=== PATIENT | female | born 1980 ===

== ENCOUNTER 2016-08-26 01:00 | Emergency (ER) | payer SELFPAY ==
[2016-08-26 01:22] VITALS: O2SAT 100
--- NOTE | 2016-08-26 02:44 | ED PDOC ---
HPI: Chest Pain Time Seen by Provider: 08/26/16 01:19 Chief Complaint (Nursing): Chest Pain Chief Complaint (Provider): Chest Pain History Per: Patient Onset/Duration Of Symptoms: Hrs (x2) Current Symptoms Are (Timing): Still Present Context: Other (Argument) Associated Symptoms: Dyspnea Additional Complaint(s): 35 year old female presents to ED with complaints of left sided chest pain x2 hours and has a past medical history of anemia. States that the chest pain started after she was in an argument. (+) SOB but notes that her symptoms have been resolving upon arrival to ED. PCP: Ryne - Risk Factors TAD Risk Factors: Neg: Hypertension Past Medical History Reviewed: Historical Data, Nursing Documentation, Vital Signs Vital Signs: Last Vital Signs Temp 98.6 F 08/26/16 01:14 Pulse 109 H 08/26/16 01:14 Resp 17 08/26/16 01:14 BP 124/67 08/26/16 01:14 Pulse Ox 100 08/26/16 02:48 - Medical History PMH: Anemia Denies: No Chronic Diseases, HIV - Surgical History Surgical History: (x1) Denies: No Surg Hx - Family History Family History: States: No Known Family Hx Denies: [place], CAD - Living Arrangements Living Arrangements: With Family - Home Medications Home Medications: Ambulatory Orders Medication Instructions Recorded Cetirizine HCl [Zyrtec] 10 mg PO DAILY #10 capsule 08/14/15 Hydrocortisone 2.5% (Rectal) 30 applic MS BID #1 tube 08/14/15 [Anusol-HC] Ibuprofen [Motrin Tab] 400 mg PO Q6 PRN #0 tab 12/27/15 Levofloxacin [Levaquin] 750 mg PO DAILY #0 tablet 12/27/15 Loratadine [Claritin] 10 mg PO DAILY #0 tab 12/27/15 Promethazine/Codeine 5 ml PO Q6 PRN #1 bottle 12/27/15 [Phenergan/Codeine Oral Syrup] Methylprednisolone [Medrol Dose 4 mg PO DAILY #21 mg 01/02/16 Pack (21 tabs)] Promethazine HCl/Codeine 5 ml PO HS #80 ml 01/02/16 [Prometh-Codein 6.25-10 mg/5 ml] Amoxicillin 875 mg PO BID #20 tablet 11/26/16 Ibuprofen [Motrin] 400 mg PO Q6 PRN #20 tab 01/19/16 Dicyclomine [Bentyl] 20 mg PO Q6H PRN #20 tab 02/07/16 Famotidine [Pepcid] 20 mg PO BID #28 tab 02/07/16 Ondansetron ODT [Zofran ODT] 4 mg PO QID #20 odt 02/07/16 Cyclobenzaprine [Cyclobenzaprine 10 mg PO BID #15 tab 08/26/16 HCl] Ibuprofen [Motrin Tab] 600 mg PO Q6 #30 tab 08/26/16 - Allergies Allergies/Adverse Reactions: Allergies Allergy/AdvReac Type Severity Reaction Status Date / Time No Known Allergies Allergy Verified 02/07/16 16:42 ANDRE Risk Score for UA/NSTEMI - ANDRE Risk Score Age > 64: NO Known CAD (Stenosis greater than 50%): NO ANDRE Score: 0 Risk %: 5% Curb-65 Severity Score - CURB-65 Severity Score Confusion: No Respiratory Rate greater than/equal to 30: No Systolic BP <90 or Diastolic BP less than/equal 60mmHg: No Age >64: No Curb-65 Score: 0 Percentage 30-day mortality: 0.6% Wells Criteria for PE - Wells Criteria for Pulmonary Embolism Clinical Signs and Symptoms of DVT: No P.E is #1 Diagnosis, or Equally Likely: No Heart Rate >100: Yes Immobilization at least 3 days;Surgery previous 4 weeks: No Previous, objectively diagnosed PE or DVT: No Hemoptysis: No Malignancy w/treatment within 6 months, or palliative: No Total Score: 1.5 Review of Systems ROS Statement: Except As Marked, All Systems Reviewed And Found Negative Cardiovascular: Positive for: Chest Pain Respiratory: Positive for: Shortness of Breath Physical Exam - Reviewed Nursing Documentation Reviewed: Yes Vital Signs Reviewed: Yes - Physical Exam Appears: Positive for: Non-toxic, No Acute Distress Skin: Positive for: Normal Color, Warm, Dry Eye Exam: Positive for: Normal appearance Neck: Positive for: Normal, Painless ROM, Supple Cardiovascular/Chest: Positive for: Regular Rate, Rhythm. Negative for: Murmur Respiratory: Positive for: Normal Breath Sounds. Negative for: Respiratory Distress Gastrointestinal/Abdominal: Positive for: Normal Exam, Soft. Negative for: Tenderness Extremity: Positive for: Normal ROM. Negative for: Capillary Refill, Deformity Neurologic/Psych: Positive for: Alert, Oriented, Mood/Affect (anxious affect). Negative for: Motor/Sensory Deficits - ECG ECG Rhythm: Positive for: Sinus Rhythm O2 Sat by Pulse Oximetry: 100 (RA) Pulse Ox Interpretation: Normal Medical Decision Making Medical Decision Makin Initial impression: noncardiac related chest pain - stress related Initial plan: * CXR * Ibuprofen 600mg PO * Re-eval 245AM: Pt. feeling better, will d/c home. Return precautions given. Scribe Attestation: Documented by Jaylene Aguilera acting as a scribe for Kayden Renteria MD. Scribe Attestation: All medical record entries made by the Scribe were at my direction and personally dictated by me. I have reviewed the chart and agree that the record accurately reflects my personal performance of the history, physical exam, medical decision making, and the department course for this patient. I have also personally directed, reviewed, and agree with the discharge instructions and disposition. Disposition - Clinical Impression Clinical Impression: Atypical chest pain - Disposition Referrals: [facility] [Outside] Disposition: Routine/Home Disposition Time: 03:10 Condition: STABLE Prescriptions: Cyclobenzaprine [Cyclobenzaprine HCl] 10 mg PO BID #15 tab Ibuprofen [Motrin Tab] 600 mg PO Q6 #30 tab Instructions: Chest Pain (ED) Print Language: NEPALESE
[2016-08-26 03:20] VITALS: BP 115/89; PULSE 107; RESP 20; TEMP 98.4
--- NOTE | 2016-08-26 09:30 | RAD ---
HISTORY: CP and SOB COMPARISON: 01/02/2016 TECHNIQUE: Chest PA and lateral FINDINGS: LUNGS: No focal airspace opacity. PLEURA: No significant pleural effusion identified. No pneumothorax apparent. CARDIOVASCULAR: Normal. OSSEOUS STRUCTURES: No significant abnormalities. VISUALIZED UPPER ABDOMEN: Normal. OTHER FINDINGS: None. IMPRESSION: No focal airspace opacity. No significant interval change. Please note that chest radiographs have low sensitivity for small pulmonary nodules. If indicated, chest CT should be obtained.
--- NOTE | 2016-08-28 07:06 | CARD ---
APPROVED REPORT EKG Measurement Heart [id number] <Conclusion> Sinus tachycardia Otherwise normal ECG
== END 2016-08-26 03:40 | disposition home or self-care (01) ==
LOC: H.ER 01:00
DX: R07.89 Other chest pain (principal)

== ENCOUNTER 2016-09-20 00:58 | Emergency (ER) | payer OTHER ==
[2016-09-20] MEDS ORDERED: Sodium Chloride 0.9% 1,000 ML IV STA ×2 (01:08→02:03)
[2016-09-20 01:50] LABS: HEMATOCRIT 34.1 % (34.0-47.0); MEAN CELL VOLUME 79.8 fl (81.0-99.0); MEAN CORPUSCULAR HEMOGLOBIN 27.3 pg (27.0-31.0); MEAN CORPUSCULAR HGB CONC 34.2 g/dL (33.0-37.0); RED CELL DISTRIBUTION WIDTH 14.2 % (11.5-14.5); WHITE BLOOD COUNT 9.3 K/uL (4.8-10.8)
[2016-09-20] MEDS ORDERED: Morphine 4 MG/ML VIAL IV STA (01:51)
[2016-09-20 02:00] LABS: CHLORIDE 108 mmol/L (98-107); SODIUM 139 mmol/l (132-148)
[2016-09-20 02:02] LABS: BILIRUBIN,TOTAL 0.6 mg/dl (0.2-1.3); GFR AFRICAN-AMERICAN > 60
[2016-09-20 02:03] LABS: ALB/GLOB RATIO 1.2 (1.0-2.1); ALKALINE PHOSPHATASE 211 U/L (38-126); ALT/SGPT 32 U/L (9-52); AST/SGOT 32 U/L (14-36); BLOOD UREA NITROGEN 16 mg/dl (7-17); CALCIUM 9.4 mg/dL (8.4-10.2); CARBON DIOXIDE 24 mmol/L (22-30); GLUCOSE,RANDOM 105 mg/dL (65-105); TOTAL PROTEIN 6.5 G/DL (6.3-8.2)
[2016-09-20] MEDS ORDERED: Iodixanol 320 MG/ML 100 ML BOTTLE IV ONE (03:15)
[2016-09-20] MEDS ORDERED: Sodium Chloride 0.9% 50 ML IV ONE (03:15)
[2016-09-20 03:45] VITALS: TEMP 98.1
--- NOTE | 2016-09-20 04:07 | ED PDOC ---
HPI: Chest Pain Time Seen by Provider: 09/20/16 01:00 Chief Complaint (Nursing): Chest Pain Chief Complaint (Provider): Left sided chest pain x 1 week History Per: Patient History/Exam Limitations: no limitations Onset/Duration Of Symptoms: Hrs Current Symptoms Are (Timing): Still Present Severity: Severe Pain Scale Rating Of: 10 Quality: Sharp Associated Symptoms: denies: Nausea, Dyspnea, Diaphoresis, Syncope Additional Complaint(s): Pt states this is the same pain she has had the same pain in the past. Pt states today the pain is more severe. PT states she has not seen a [facility]. Past Medical History Reviewed: Historical Data, Nursing Documentation, Vital Signs Vital Signs: Last Vital Signs Temp 98.1 F 09/20/16 03:44 Pulse 88 09/20/16 03:44 Resp 18 09/20/16 03:44 BP 110/61 09/20/16 03:44 Pulse Ox 100 09/20/16 04:17 - Medical History PMH: Anemia Denies: HIV - Surgical History Surgical History: (x1) - Family History Family History: States: Unknown Family Hx Denies: [place], CAD - Living Arrangements Living Arrangements: With Family - Social History Current smoker - smoking cessation education provided: No Alcohol: None Drugs: Denies - Home Medications Home Medications: Ambulatory Orders Medication Instructions Recorded Cetirizine HCl [Zyrtec] 10 mg PO DAILY #10 capsule 08/14/15 Hydrocortisone 2.5% (Rectal) 30 applic [place] BID #1 tube 08/14/15 [Anusol-HC] Ibuprofen [Motrin Tab] 400 mg PO Q6 PRN #0 tab 12/27/15 Levofloxacin [Levaquin] 750 mg PO DAILY #0 tablet 12/27/15 Loratadine [Claritin] 10 mg PO DAILY #0 tab 12/27/15 Promethazine/Codeine 5 ml PO Q6 PRN #1 bottle 12/27/15 [Phenergan/Codeine Oral Syrup] Methylprednisolone [Medrol Dose 4 mg PO DAILY #21 mg 01/02/16 Pack (21 tabs)] Promethazine HCl/Codeine 5 ml PO HS #80 ml 01/02/16 [Prometh-Codein 6.25-10 mg/5 ml] Amoxicillin 875 mg PO BID #20 tablet 01/19/16 Ibuprofen [Motrin] 400 mg PO Q6 PRN #20 tab 01/19/16 Dicyclomine [Bentyl] 20 mg PO Q6H PRN #20 tab 02/07/16 Famotidine [Pepcid] 20 mg PO BID #28 tab 02/07/16 Ondansetron ODT [Zofran ODT] 4 mg PO QID #20 odt 02/07/16 Cyclobenzaprine [Cyclobenzaprine 10 mg PO BID #15 tab 08/26/16 HCl] Ibuprofen [Motrin Tab] 600 mg PO Q6 #30 tab 08/26/16 - Allergies Allergies/Adverse Reactions: Allergies Allergy/AdvReac Type Severity Reaction Status Date / Time No Known Allergies Allergy Verified 09/20/16 01:01 Review of Systems ROS Statement: Except As Marked, All Systems Reviewed And Found Negative Cardiovascular: Positive for: Chest Pain Respiratory: Negative for: Cough, Shortness of Breath Physical Exam - Reviewed Nursing Documentation Reviewed: Yes Vital Signs Reviewed: Yes - Physical Exam Appears: Positive for: Well, Non-toxic, No Acute Distress Head Exam: Positive for: ATRAUMATIC, NORMAL INSPECTION, NORMOCEPHALIC Skin: Positive for: Normal Color, Warm, DRY Eye Exam: Positive for: Normal appearance ENT: Positive for: Normal ENT Inspection Neck: Positive for: Normal, Painless ROM Cardiovascular/Chest: Positive for: Regular Rate, Rhythm Respiratory: Positive for: Normal Breath Sounds. Negative for: Accessory Muscle Use, Respiratory Distress Back: Positive for: Normal Inspection Extremity: Positive for: Normal ROM. Negative for: Tenderness Neurologic/Psych: Positive for: Alert, Oriented - Laboratory Results Result Diagrams: 09/20/16 01:46 09/20/16 01:46 - ECG O2 Sat by Pulse Oximetry: 100 Disposition - Clinical Impression Clinical Impression: Chest pain - Patient ED Disposition Is Patient to be Admitted: Transfer of Care - Disposition Disposition: Transfer of Care Disposition Time: 05:59 Condition: STABLE
--- NOTE | 2016-09-20 06:00 | ED PDOC ---
- Laboratory Results Result Diagrams: 09/20/16 01:46 09/20/16 01:46 - ECG O2 Sat by Pulse Oximetry: 100 (RA) Pulse Ox Interpretation: Normal Medical Decision Making Medical Decision Making: Time: 0600 Initial plan: Patient signed out to me by Racquel Evans PA-C. Pending Angio Chest Cat Scan. 0632: Re-Assess- EXAM: CT Angiography Chest With Intravenous Contrast CLINICAL HISTORY: 35 years old, female; Pain; Chest pain; Radiating; Additional info: Pleuritic left sided chest pain,tachycardia TECHNIQUE: Axial computed tomographic angiography images of the chest with intravenous contrast using pulmonary embolism protocol. This CT exam was performed using one or more of the following dose reduction techniques: automated exposure control, adjustment of the mA and/or kV according to patient size, and/or use of iterative reconstruction technique. MIP reconstructed images were created and reviewed. Coronal and sagittal reformatted images were created and reviewed. CONTRAST: 99 mL of [id number] administered intravenously. EXAM DATE/TIME: 09/20/2016 1:50 AM COMPARISON: No relevant prior studies available. FINDINGS: LIMITATIONS: Mild to moderate respiratory motion artifact. PULMONARY ARTERIES: Exam is somewhat limited for the detection of pulmonary emboli secondary to respiratory motion. Allowing for this, no definite pulmonary emboli are seen. AORTA: No evidence of aortic dissection. LUNGS: Incidental 6 mm noncalcified pulmonary nodule in the right lung, image 236/series 9. For low-risk patients recommend follow-up CT at 6-12 months. If unchanged consider an additional follow-up CT at 18-24 months. For high-risk patients (smoking history or other known risk factors) initial follow-up CT at 6-12 months and if unchanged, 18-24 months. No evidence of significant focal consolidation/infiltrate in the lungs. No evidence of diffuse pulmonary vascular congestion. PLEURAL SPACE: No pneumothorax or pleural effusions seen. HEART: No evidence of significant pericardial effusion. MEDIASTINUM: Soft tissue density is seen in the anterior mediastinum, most likely representing residual thymus, given its appearance. THYROID: Thyroid gland is mildly, diffusely enlarged. No focal nodules are seen. BONES/JOINTS: No acute bony abnormality identified. SOFT TISSUES: No acute abnormality of the visualized soft tissues seen. LYMPH NODES: No evidence of diffuse lymphadenopathy. STOMACH AND BOWEL: Subtle stranding of the peripancreatic fat is seen. Multiple fluid-filled and mildly dilated small bowel loops seen in the left upper abdomen, which could represent a mild ileus. No evidence of significant gastric or duodenal dilatation. IMPRESSION: - No evidence of pulmonary embolism or other significant acute abnormality in the chest. - Subtle stranding of the fat adjacent to the pancreas. This finding could be due to mild/early acute pancreatitis. Recommend clinical correlation. - Incidental 6 mm pumonary nodule. See recommendations above. - See above for remaining findings. 0700: Giving Sign out: Patient signed out to Dr. Kennedy at this time. Pending results of Lipase. Scribe Attestation: Documented by Reina Rose, acting as a scribe for Kayden Renteria MD. Scribe Attestation: All medical record entries made by the Scribe were at my direction and personally dictated by me. I have reviewed the chart and agree that the record accurately reflects my personal performance of the history, physical exam, medical decision making, and the department course for this patient. I have also personally directed, reviewed, and agree with the discharge instructions and disposition. Disposition - Clinical Impression Clinical Impression: Chest pain - POA Present On Arrival: None - Disposition Disposition: Transfer of Care Disposition Time: 07:00 Condition: STABLE Patient Signed Over To: Tucker Kennedy Handoff Comments: pending lipase
[2016-09-20 06:27] VITALS: BP 125/65; PULSE 79
--- NOTE | 2016-09-20 06:33 | CT ---
EXAM: CT Angiography Chest With Intravenous Contrast CLINICAL HISTORY: 35 years old, female; Pain; Chest pain; Radiating; Additional info: Pleuritic left sided chest pain, tachycardia TECHNIQUE: Axial computed tomographic angiography images of the chest with intravenous contrast using pulmonary embolism protocol. This CT exam was performed using one or more of the following dose reduction techniques: automated exposure control, adjustment of the mA and/or kV according to patient size, and/or use of iterative reconstruction technique. MIP reconstructed images were created and reviewed. Coronal and sagittal reformatted images were created and reviewed. CONTRAST: 99 mL of [id number] administered intravenously. EXAM DATE/TIME: 09/20/2016 1:50 AM COMPARISON: No relevant prior studies available. FINDINGS: LIMITATIONS: Mild to moderate respiratory motion artifact. PULMONARY ARTERIES: Exam is somewhat limited for the detection of pulmonary emboli secondary to respiratory motion. Allowing for this, no definite pulmonary emboli are seen. AORTA: No evidence of aortic dissection. LUNGS: Incidental 6 mm noncalcified pulmonary nodule in the right lung, image 236/series 9. For low-risk patients recommend follow-up CT at 6-12 months. If unchanged consider an additional follow-up CT at 18-24 months. For high-risk patients (smoking history or other known risk factors) initial follow-up CT at 6-12 months and if unchanged, 18-24 months. No evidence of significant focal consolidation/infiltrate in the lungs. No evidence of diffuse pulmonary vascular congestion. PLEURAL SPACE: No pneumothorax or pleural effusions seen. HEART: No evidence of significant pericardial effusion. MEDIASTINUM: Soft tissue density is seen in the anterior mediastinum, most likely representing residual thymus, given its appearance. THYROID: Thyroid gland is mildly, diffusely enlarged. No focal nodules are seen. BONES/JOINTS: No acute bony abnormality identified. SOFT TISSUES: No acute abnormality of the visualized soft tissues seen. LYMPH NODES: No evidence of diffuse lymphadenopathy. STOMACH AND BOWEL: Subtle stranding of the peripancreatic fat is seen. Multiple fluid-filled and mildly dilated small bowel loops seen in the left upper abdomen, which could represent a mild ileus. No evidence of significant gastric or duodenal dilatation. IMPRESSION: - No evidence of pulmonary embolism or other significant acute abnormality in the chest. - Subtle stranding of the fat adjacent to the pancreas. This finding could be due to mild/early acute pancreatitis. Recommend clinical correlation. - Incidental 6 mm pumonary nodule. See recommendations above. - See above for remaining findings.
--- NOTE | 2016-09-20 07:12 | ED PDOC ---
- Laboratory Results Result Diagrams: 09/20/16 01:46 09/20/16 01:46 - ECG O2 Sat by Pulse Oximetry: 100 (RA) Disposition - Clinical Impression Clinical Impression: Chest pain - POA Present On Arrival: None - Disposition Referrals: [facility] [Outside] Disposition: Routine/Home Disposition Time: 07:11 Condition: STABLE Instructions: Chest Pain (ED) Forms: [employer] (Filipino)
[2016-09-20 07:37] VITALS: RESP 16; O2SAT 99
--- NOTE | 2016-09-21 13:25 | CARD ---
APPROVED REPORT EKG Measurement Heart [id number] <Conclusion> Sinus tachycardia Otherwise normal ECG
== END 2016-09-20 07:37 | disposition home or self-care (01) ==
LOC: H.ER 00:58
DX: R07.89 Other chest pain (principal)
CPT/HCPCS: 71275; 80053; 81025; 83690; 84484; 85027; 93005; 96361; 96374; 99285; J7040; Q9967

== ENCOUNTER 2016-11-12 22:24 | Emergency (ER) | payer SELFPAY ==
[2016-11-12 22:32] VITALS: BP 154/81; PULSE 119; RESP 16; TEMP 99.6; O2SAT 100
--- NOTE | 2016-11-12 22:47 | ED PDOC ---
HPI: Chest Pain Time Seen by Provider: 11/12/16 22:37 Chief Complaint (Nursing): Chest Pain History Per: Patient (Sharp left sided chest pain, pain under right breast. Intermittent over past few months. Denies SOB or cough.) Past Medical History Vital Signs: Last Vital Signs Temp 99.6 F 11/12/16 22:30 Pulse 119 H 11/12/16 22:30 Resp 16 11/12/16 22:30 BP 154/81 H 11/12/16 22:30 Pulse Ox 100 11/12/16 23:44 - Medical History PMH: Anemia Denies: HIV - Surgical History Surgical History: (x1) - Family History Family History: States: Unknown Family Hx Denies: [place], CAD - Home Medications Home Medications: Ambulatory Orders Medication Instructions Recorded Cetirizine HCl [Zyrtec] 10 mg PO DAILY #10 capsule 08/14/15 Hydrocortisone 2.5% (Rectal) 30 applic MS BID #1 tube 08/14/15 [Anusol-HC] Ibuprofen [Motrin Tab] 400 mg PO Q6 PRN #0 tab 12/27/15 Levofloxacin [Levaquin] 750 mg PO DAILY #0 tablet 12/27/15 Loratadine [Claritin] 10 mg PO DAILY #0 tab 12/27/15 Promethazine/Codeine 5 ml PO Q6 PRN #1 bottle 12/27/15 [Phenergan/Codeine Oral Syrup] Methylprednisolone [Medrol Dose 4 mg PO DAILY #21 mg 01/02/16 Pack (21 tabs)] Promethazine HCl/Codeine 5 ml PO HS #80 ml 01/02/16 [Prometh-Codein 6.25-10 mg/5 ml] Amoxicillin 875 mg PO BID #20 tablet 01/19/16 Ibuprofen [Motrin] 400 mg PO Q6 PRN #20 tab 01/19/16 Dicyclomine [Bentyl] 20 mg PO Q6H PRN #20 tab 02/07/16 Famotidine [Pepcid] 20 mg PO BID #28 tab 02/07/16 Ondansetron ODT [Zofran ODT] 4 mg PO QID #20 odt 02/07/16 Cyclobenzaprine [Cyclobenzaprine 10 mg PO BID #15 tab 08/26/16 HCl] Ibuprofen [Motrin Tab] 600 mg PO Q6 #30 tab 08/26/16 Non-Formulary 1 ea .ROUTE Q6 #1 ea 11/12/16 - Allergies Allergies/Adverse Reactions: Allergies Allergy/AdvReac Type Severity Reaction Status Date / Time No Known Allergies Allergy Verified 11/12/16 22:30 Review of Systems ROS Statement: Except As Marked, All Systems Reviewed And Found Negative Cardiovascular: Positive for: Chest Pain Physical Exam - Reviewed Nursing Documentation Reviewed: Yes Vital Signs Reviewed: Yes - Physical Exam Appears: Positive for: Non-toxic, No Acute Distress Head Exam: Positive for: ATRAUMATIC, NORMAL INSPECTION, NORMOCEPHALIC Skin: Positive for: Normal Color, Warm, DRY Eye Exam: Positive for: EOMI, Normal appearance, PERRL ENT: Positive for: Normal ENT Inspection Neck: Positive for: Normal, Painless ROM Cardiovascular/Chest: Positive for: Regular Rate, Rhythm. Negative for: Chest Non Tender (left sided chest wall tenderness) Respiratory: Positive for: CNT, Normal Breath Sounds Gastrointestinal/Abdominal: Positive for: Normal Exam, Bowel Sounds, Soft Back: Positive for: Normal Inspection Extremity: Positive for: Normal ROM. Negative for: Calf Tenderness, Swelling Neurologic/Psych: Positive for: Alert, Oriented - Laboratory Results Result Diagrams: 11/12/16 23:03 11/12/16 23:03 - ECG O2 Sat by Pulse Oximetry: 100 Disposition - Clinical Impression Clinical Impression: Chest wall pain - Patient ED Disposition Is Patient to be Admitted: No Counseled Patient/Family Regarding: Studies Performed, Diagnosis, Need For Followup, Rx Given - Disposition Referrals: [facility] [Outside] Disposition: Routine/Home Disposition Time: 23:42 Condition: FAIR Prescriptions: Non-Formulary 1 ea .ROUTE Q6 #1 ea Instructions: Chest Wall Pain (ED) Forms: [employer] (Haitian) Print Language: URDU
[2016-11-12 23:07] LABS: BASO # 0.1 K/uL (0.0-0.2); BASO % 0.6 % (0.0-2.0); EOS # 0.1 K/uL (0.0-0.7); EOS % 1.6 % (0.0-4.0); HEMATOCRIT 33.4 % (34.0-47.0); LYMPH # 3.7 K/uL (1.0-4.3); LYMPH % 40.3 % (20.0-40.0); MEAN CELL VOLUME 79.3 fl (81.0-99.0); MEAN CORPUSCULAR HEMOGLOBIN 26.4 pg (27.0-31.0); MEAN CORPUSCULAR HGB CONC 33.3 g/dL (33.0-37.0); MEAN PLATELET VOLUME 8.5 fl (7.2-11.7); MONO # 1.2 K/uL (0.0-0.8); MONO % 13.3 % (0.0-10.0); NEUT % 44.2 % (50.0-75.0); NRBC % 0.1 % (0.0-0.0); RED CELL DISTRIBUTION WIDTH 14.1 % (11.5-14.5); WHITE BLOOD COUNT 9.2 K/uL (4.8-10.8)
[2016-11-12 23:26] LABS: ALB/GLOB RATIO 1.3 (1.0-2.1); ALKALINE PHOSPHATASE 169 U/L (38-126); ALT/SGPT 26 U/L (9-52); AST/SGOT 52 U/L (14-36); BILIRUBIN,TOTAL 0.8 mg/dl (0.2-1.3); BLOOD UREA NITROGEN 14 mg/dl (7-17); CALCIUM 9.3 mg/dL (8.4-10.2); CARBON DIOXIDE 21 mmol/L (22-30); CHLORIDE 106 mmol/L (98-107); GFR AFRICAN-AMERICAN > 60; GLUCOSE,RANDOM 108 mg/dL (65-105); POTASSIUM 3.7 MMOL/L (3.6-5.0); SODIUM 137 mmol/l (132-148); TOTAL PROTEIN 6.5 G/DL (6.3-8.2)
--- NOTE | 2016-11-13 10:47 | CARD ---
APPROVED REPORT EKG Measurement Heart [id number] <Conclusion> Sinus tachycardia Otherwise normal ECG
== END 2016-11-13 00:04 | disposition home or self-care (01) ==
LOC: H.ER 22:24
DX: R07.89 Other chest pain (principal)

== ENCOUNTER 2016-11-15 18:25 | Emergency (ER) | payer SELFPAY ==
[2016-11-15] MEDS ORDERED: Sodium Chloride 0.9% 1,000 ML IV STA (19:08)
--- NOTE | 2016-11-15 19:18 | ED PDOC ---
HPI: Female Pain Time Seen by Provider: 11/15/16 19:01 Chief Complaint (Nursing): Abdominal Pain Chief Complaint (Provider): - 8 weeks? with suprapubic pain, nausea History Per: Patient History/Exam Limitations: no limitations Onset/Duration Of Symptoms: Days Current Symptoms Are (Timing): Still Present Severity: Moderate Quality Of Discomfort: Dull, Cramping Associated Symptoms: Nausea, Vomiting, Loss Of Appetite. denies: Fever, Chills , Diarrhea Alleviating Factors: None Additional Complaint(s): Pt and states she saw OB but there was no heart beat. Pt reports nausea today. Pt also reports cramping pain, no vaginal bleeding. Past Medical History Reviewed: Historical Data, Nursing Documentation, Vital Signs Vital Signs: Last Vital Signs Temp 98.6 F 11/15/16 18:27 Pulse 89 11/15/16 18:27 Resp 16 11/15/16 18:27 BP 143/77 11/15/16 18:27 Pulse Ox 99 11/15/16 18:27 - Medical History PMH: Anemia Denies: HIV - Surgical History Surgical History: (x1) - Family History Family History: States: Unknown Family Hx Denies: SD, CAD - Living Arrangements Living Arrangements: With Family - Social History Current smoker - smoking cessation education provided: No Alcohol: None Drugs: Denies - Home Medications Home Medications: Ambulatory Orders Medication Instructions Recorded Cetirizine HCl [Zyrtec] 10 mg PO DAILY #10 capsule 08/14/15 Hydrocortisone 2.5% (Rectal) 30 applic AL BID #1 tube 08/14/15 [Anusol-HC] Ibuprofen [Motrin Tab] 400 mg PO Q6 PRN #0 tab 12/27/15 Levofloxacin [Levaquin] 750 mg PO DAILY #0 tablet 12/27/15 Loratadine [Claritin] 10 mg PO DAILY #0 tab 12/27/15 Promethazine/Codeine 5 ml PO Q6 PRN #1 bottle 12/27/15 [Phenergan/Codeine Oral Syrup] Methylprednisolone [Medrol Dose 4 mg PO DAILY #21 mg 01/02/16 Pack (21 tabs)] Promethazine HCl/Codeine 5 ml PO HS #80 ml 01/02/16 [Prometh-Codein 6.25-10 mg/5 ml] Amoxicillin 875 mg PO BID #20 tablet 01/19/16 Ibuprofen [Motrin] 400 mg PO Q6 PRN #20 tab 01/19/16 Dicyclomine [Bentyl] 20 mg PO Q6H PRN #20 tab 02/07/16 Famotidine [Pepcid] 20 mg PO BID #28 tab 02/07/16 Ondansetron ODT [Zofran ODT] 4 mg PO QID #20 odt 02/07/16 Cyclobenzaprine [Cyclobenzaprine 10 mg PO BID #15 tab 08/26/16 HCl] Ibuprofen [Motrin Tab] 600 mg PO Q6 #30 tab 08/26/16 Non-Formulary 1 ea .ROUTE Q6 #1 ea 11/12/16 - Allergies Allergies/Adverse Reactions: Allergies Allergy/AdvReac Type Severity Reaction Status Date / Time No Known Allergies Allergy Verified 11/12/16 22:30 Review of Systems ROS Statement: Except As Marked, All Systems Reviewed And Found Negative Constitutional: Negative for: Fever, Chills Respiratory: Negative for: Cough Gastrointestinal: Positive for: Nausea, Vomiting, Abdominal Pain Physical Exam - Reviewed Nursing Documentation Reviewed: Yes Vital Signs Reviewed: Yes - Physical Exam Appears: Positive for: Well, Non-toxic, No Acute Distress Head Exam: Positive for: ATRAUMATIC, NORMAL INSPECTION, NORMOCEPHALIC Skin: Positive for: Normal Color, Warm, DRY Eye Exam: Positive for: Normal appearance ENT: Positive for: Normal ENT Inspection Neck: Positive for: Normal, Painless ROM Cardiovascular/Chest: Positive for: Regular Rate, Rhythm Respiratory: Positive for: Normal Breath Sounds. Negative for: Accessory Muscle Use, Respiratory Distress Gastrointestinal/Abdominal: Positive for: Bowel Sounds, Soft, Tenderness ( Suprapubic ). Negative for: Normal Exam Back: Positive for: Normal Inspection Extremity: Positive for: Normal ROM Neurologic/Psych: Positive for: Alert, Oriented - ECG O2 Sat by Pulse Oximetry: 99 Pulse Ox Interpretation: Normal Medical Decision Making Medical Decision Making: Endorsed pending labs and US. Disposition - Clinical Impression Clinical Impression: Abdominal pain during - Patient ED Disposition Is Patient to be Admitted: Transfer of Care - Disposition Disposition: Transfer of Care Disposition Time: 19:20 Condition: GOOD
--- NOTE | 2016-11-15 20:37 | US ---
EXAM: US , Transvaginal EXAM DATE/TIME: 11/15/2016 8:14 PM CLINICAL HISTORY: 36 years old, female; Pain; complicated by abdominal or pelvic pain; Periumbilical; First trimester; Gestational age or lmp: Lmp [id number]; ; Prior surgery; Surgery date: 6+ months; Surgery type: ; Additional info: Suprapubic pain, TECHNIQUE: Real-time transvaginal obstetrical ultrasound of the maternal pelvis and a first trimester with image documentation. Transvaginal imaging was used for better evaluation of the fetus and adnexa. COMPARISON: There are no prior studies for comparison. FINDINGS: Gestation: There is a single intrauterine gestation. Gestational sac has mean diameter 21.3 mm. [place]casin rump length measures 10 mm. A yolk sac is present, internal diameter measures 3 mm. There is a heart rate of 169 beats per minute. Uterus: Uterus measures approximately 10 x 6.5 x 7.4 cm.. Cervix measures 8.3 cm in line There is a 3.5 x 4.3 x 4.1 cm left fundal intramural fibroid. Ovaries: Right ovary measures 1.81 x 1.64 x 1.47 cm.There are multiple small follicles. There is intraovarian blood flow. Left ovary measures 2.97 x 2.51 x 2.37 cm. There is a 2.3 x 1.8 x 1.6 cm cyst.There is expected blood flow on Doppler imaging Free fluid: There is no free fluid. IMPRESSION: 7 week 0 day single living intrauterine gestation, estimated date of delivery of 07/04/17; fundal fibroid
[2016-11-15 20:49] LABS: BASO # 0.1 K/uL (0.0-0.2); BASO % 0.5 % (0.0-2.0); EOS # 0.1 K/uL (0.0-0.7); EOS % 1.4 % (0.0-4.0); HEMATOCRIT 36.1 % (34.0-47.0); LYMPH # 4.2 K/uL (1.0-4.3); LYMPH % 38.4 % (20.0-40.0); MEAN CELL VOLUME 78.8 fl (81.0-99.0); MEAN CORPUSCULAR HEMOGLOBIN 26.7 pg (27.0-31.0); MEAN CORPUSCULAR HGB CONC 33.8 g/dL (33.0-37.0); MEAN PLATELET VOLUME 8.7 fl (7.2-11.7); MONO # 1.2 K/uL (0.0-0.8); MONO % 10.8 % (0.0-10.0); NEUT # 5.3 K/uL (1.8-7.0); NEUT % 48.9 % (50.0-75.0); NRBC % 0.5 % (0.0-0.0); RED CELL DISTRIBUTION WIDTH 13.9 % (11.5-14.5); WHITE BLOOD COUNT 10.8 K/uL (4.8-10.8)
[2016-11-15 20:58] LABS: ALB/GLOB RATIO 1.3 (1.0-2.1); ALKALINE PHOSPHATASE 197 U/L (38-126); ALT/SGPT 32 U/L (9-52); AST/SGOT 29 U/L (14-36); BILIRUBIN,TOTAL 0.9 mg/dl (0.2-1.3); BLOOD UREA NITROGEN 13 mg/dl (7-17); CALCIUM 9.6 mg/dL (8.4-10.2); CARBON DIOXIDE 22 mmol/L (22-30); CHLORIDE 105 mmol/L (98-107); GFR AFRICAN-AMERICAN > 60; GLUCOSE,RANDOM 88 mg/dL (65-105); POTASSIUM 3.6 MMOL/L (3.6-5.0); SODIUM 140 mmol/l (132-148); TOTAL PROTEIN 7.3 G/DL (6.3-8.2)
[2016-11-15 22:32] VITALS: BP 117/58; PULSE 83; RESP 18; TEMP 98.4; O2SAT 100
--- NOTE | 2016-11-15 22:38 | ED PDOC ---
- Laboratory Results Result Diagrams: 11/15/16 20:43 11/15/16 20:43 - ECG O2 Sat by Pulse Oximetry: 100 - Progress ED Course And Treament: blood type o pos US: 6 week SLIUP with FHR 164 noted. Disposition - Clinical Impression Clinical Impression: Abdominal pain during - POA Present On Arrival: None - Disposition Disposition: Routine/Home Disposition Time: 22:37 Condition: GOOD Prescriptions: Ondansetron [Zofran] 4 mg PO Q8H PRN #8 tab PRN Reason: Nausea/Vomiting Instructions: Threatened Miscarriage (ED) Forms: [employer] (German)
== END 2016-11-15 23:41 | disposition home or self-care (01) ==
LOC: H.ER 18:25
DX: O26.891 Other specified pregnancy related conditions, first trimester (principal); R10.9 Unspecified abdominal pain; Z3A.01 Less than 8 weeks gestation of pregnancy
CPT/HCPCS: 76817; 80053; 81025; 84702; 85025; 86850; 86900; 99283; J2405; J7040

== ENCOUNTER 2016-11-23 10:53 | Emergency (ER) | payer SELFPAY ==
[2016-11-23 11:07] VITALS: BP 116/53; PULSE 79; RESP 18; TEMP 98.6; O2SAT 99
--- NOTE | 2016-11-23 11:38 | ED PDOC ---
HPI: Abdomen Time Seen by Provider: 11/23/16 11:11 Chief Complaint (Nursing): Abdominal Pain Chief Complaint (Provider): Abdominal pain, vomiting History Per: Patient History/Exam Limitations: no limitations Onset/Duration Of Symptoms: Days Outside of [place] travel?: No Current Symptoms Are (Timing): Still Present Location Of Pain/Discomfort: RLQ, LLQ Associated Symptoms: Vomiting Additional Complaint(s): The patient is a 36yo female, presents to the ED for evaluation of vomiting and lower abdominal pain, in setting of 8weeks , since yesterday. Patient reports she was prescribed Zofran during her last visit but has run out of the medications. She denies any vaginal bleeding or dysuria. She offers no additional medical complaints. Abnormal Vaginal Bleeding: No : 2 Para: 1 Miscarriage: 0 Past Medical History Reviewed: Historical Data, Nursing Documentation, Vital Signs Vital Signs: Last Vital Signs Temp 98.6 F 11/23/16 11:04 Pulse 79 11/23/16 11:04 Resp 18 11/23/16 11:04 BP 116/53 L 11/23/16 11:04 Pulse Ox 99 11/23/16 14:47 - Medical History PMH: Anemia Denies: HIV - Surgical History Surgical History: (x1) - Family History Family History: States: Unknown Family Hx Denies: ID, CAD - Social History Current smoker - smoking cessation education provided: No Ex-Smoker (has not smoked in the last 12 months): No Alcohol: None Drugs: Denies - Home Medications Home Medications: Ambulatory Orders Medication Instructions Recorded Cetirizine HCl [Zyrtec] 10 mg PO DAILY #10 capsule 08/14/15 Hydrocortisone 2.5% (Rectal) 30 applic MS BID #1 tube 08/14/15 [Anusol-HC] Ibuprofen [Motrin Tab] 400 mg PO Q6 PRN #0 tab 12/27/15 Levofloxacin [Levaquin] 750 mg PO DAILY #0 tablet 12/27/15 Loratadine [Claritin] 10 mg PO DAILY #0 tab 12/27/15 Promethazine/Codeine 5 ml PO Q6 PRN #1 bottle 12/27/15 [Phenergan/Codeine Oral Syrup] Methylprednisolone [Medrol Dose 4 mg PO DAILY #21 mg 01/02/16 Pack (21 tabs)] Promethazine HCl/Codeine 5 ml PO HS #80 ml 01/02/16 [Prometh-Codein 6.25-10 mg/5 ml] Amoxicillin 875 mg PO BID #20 tablet 01/19/16 Ibuprofen [Motrin] 400 mg PO Q6 PRN #20 tab 01/19/16 Dicyclomine [Bentyl] 20 mg PO Q6H PRN #20 tab 02/07/16 Famotidine [Pepcid] 20 mg PO BID #28 tab 02/07/16 Ondansetron ODT [Zofran ODT] 4 mg PO QID #20 odt 02/07/16 Cyclobenzaprine [Cyclobenzaprine 10 mg PO BID #15 tab 08/26/16 HCl] Ibuprofen [Motrin Tab] 600 mg PO Q6 #30 tab 08/26/16 Non-Formulary 1 ea .ROUTE Q6 #1 ea 11/12/16 Ondansetron [Zofran] 4 mg PO Q8H PRN #8 tab 11/15/16 Doxylamine/Pyridoxine HCl (B6) 1 each PO DAILY PRN #20 tablet. 11/23/16 [Ita Silveira 10-10 mg Tablet] - Allergies Allergies/Adverse Reactions: Allergies Allergy/AdvReac Type Severity Reaction Status Date / Time No Known Allergies Allergy Verified 11/12/16 22:30 Review of Systems ROS Statement: Except As Marked, All Systems Reviewed And Found Negative Gastrointestinal: Positive for: Nausea, Vomiting, Abdominal Pain Genitourinary Female: Negative for: Dysuria, Vaginal Bleeding Physical Exam - Reviewed Nursing Documentation Reviewed: Yes Vital Signs Reviewed: Yes - Physical Exam Appears: Positive for: Non-toxic, No Acute Distress Head Exam: Positive for: ATRAUMATIC, NORMAL INSPECTION, NORMOCEPHALIC Skin: Positive for: Warm, Dry Eye Exam: Positive for: Normal appearance Neck: Positive for: Supple Cardiovascular/Chest: Positive for: Regular Rate, Rhythm Respiratory: Positive for: Normal Breath Sounds. Negative for: Respiratory Distress Gastrointestinal/Abdominal: Positive for: Soft. Negative for: Tenderness Extremity: Positive for: Normal ROM. Negative for: Deformity, Swelling Neurologic/Psych: Positive for: Alert, Oriented. Negative for: Motor/Sensory Deficits - Laboratory Results Result Diagrams: 11/23/16 11:50 11/23/16 11:50 - ECG O2 Sat by Pulse Oximetry: 99 (RA) Pulse Ox Interpretation: Normal Medical Decision Making Medical Decision Making: Time: 1120 Impression: Lower abdominal pain and vomiting in setting of Plan: -- Labs -- IV Fluids -- US OB 1st trimester Reassess Time: 2:39 US Abd/Pelvis/Transvaginal FINDINGS: UTERUS: Gestational sac: Single intrauterine gestation. Heart rate: 173 bpm. age (Ultrasound estimated): 8 weeks and 2 days Christina-gestational hemorrhage: None. Date of delivery (Ultrasound estimated) : 07/02/2017 Uterus measures 13 x 7.6 x 9.7 cm. Normal in size and appearance. CERVIX: Long and closed. No cervical abnormality seen. RIGHT OVARY: Measures 2.3 x 1.9 x 1.1 cm. No mass lesion. Normal flow. LEFT OVARY: Measures 3.9 x 4.3 x 5.3 cm. No solid mass. Normal flow. Left ovary contains a simple appearing 3.2 centimeter x 2.3 centimeter x 3.7 centimeter cyst, most consistent with corpus luteal cyst. . FREE FLUID: None. OTHER FINDINGS: None. IMPRESSION: Single live intrauterine gestation with an estimated gestational age of 8 weeks and 2 days. No subchorionic hemorrhage. Left ovarian corpus luteal cyst only well appreciated on transabdominal imaging. --Patient was counseled on the results of her ultrasound and is stable for discharge home. Scribe Attestation: Documented by Pamela Barrett and Jeff Clarke acting as a scribe for Ariella Chapman MD. Provider Attestation: All medical record entries made by the Scribe were at my direction and personally dictated by me. I have reviewed the chart and agree that the record accurately reflects my personal performance of the history, physical exam, medical decision making, and the department course for this patient. I have also personally directed, reviewed, and agree with the discharge instructions and disposition. Disposition - Clinical Impression Clinical Impression: Vomiting during , Abdominal pain affecting - Patient ED Disposition Is Patient to be Admitted: No Counseled Patient/Family Regarding: Studies Performed, Diagnosis, Need For Followup - Disposition [facility] Disposition: Routine/Home Disposition Time: 14:45 Condition: STABLE Prescriptions: Doxylamine/Pyridoxine HCl (B6) [Ita Silveira 10-10 mg Tablet] 1 each PO DAILY PRN #20 tablet. PRN Reason: Nausea/Vomiting Instructions: Hyperemesis Gravidarum (ED), Abdominal Pain in (ED) Forms: [employer] (Malay) Print Language: BELARUSIAN - POA Present On Arrival: None
[2016-11-23 12:06] LABS: BASO % 0.2 % (0.0-2.0); EOS # 0.1 K/uL (0.0-0.7); EOS % 1.2 % (0.0-4.0); HEMATOCRIT 34.9 % (34.0-47.0); LYMPH # 3.1 K/uL (1.0-4.3); LYMPH % 36.9 % (20.0-40.0); MEAN CELL VOLUME 79.9 fl (81.0-99.0); MEAN CORPUSCULAR HEMOGLOBIN 26.9 pg (27.0-31.0); MEAN CORPUSCULAR HGB CONC 33.6 g/dL (33.0-37.0); MEAN PLATELET VOLUME 9.1 fl (7.2-11.7); MONO # 0.9 K/uL (0.0-0.8); MONO % 10.2 % (0.0-10.0); NEUT # 4.3 K/uL (1.8-7.0); NEUT % 51.5 % (50.0-75.0); NRBC % 0.4 % (0.0-0.0); RED CELL DISTRIBUTION WIDTH 14.3 % (11.5-14.5); WHITE BLOOD COUNT 8.3 K/uL (4.8-10.8)
[2016-11-23 12:11] LABS: ALB/GLOB RATIO 1.3 (1.0-2.1); ALKALINE PHOSPHATASE 175 U/L (38-126); ALT/SGPT 31 U/L (9-52); AST/SGOT 23 U/L (14-36); BILIRUBIN,TOTAL 1.1 mg/dl (0.2-1.3); BLOOD UREA NITROGEN 16 mg/dl (7-17); CALCIUM 9.2 mg/dL (8.4-10.2); CARBON DIOXIDE 19 mmol/L (22-30); CHLORIDE 106 mmol/L (98-107); GFR AFRICAN-AMERICAN > 60; GLUCOSE,RANDOM 83 mg/dL (65-105); POTASSIUM 3.9 MMOL/L (3.6-5.0); SODIUM 138 mmol/l (132-148); TOTAL PROTEIN 6.4 G/DL (6.3-8.2)
[2016-11-23 12:33] LABS: RBC URINE 5 /hpf (0-3); URINE BACTERIA RARE (<OCC); URINE BILIRUBIN NEGATIVE (NEGATIVE); URINE BLOOD SMALL (NEGATIVE); URINE COLOR YELLOW (YELLOW); URINE GLUCOSE (UA) NEG (Normal); URINE KETONE NEGATIVE (NEGATIVE); URINE LEUKOCYTE ESTERASE NEG Leu/uL (Negative); URINE PROTEIN NEGATIVE (NEGATIVE); WBC URINE 2 /hpf (0-5)
--- NOTE | 2016-11-23 14:40 | US ---
PROCEDURE: OB Pelvic Ultrasound HISTORY: Abd pain COMPARISON: None available. FINDINGS: UTERUS: Gestational sac: Single intrauterine gestation. Heart rate: 173 bpm. age (Ultrasound estimated): 8 weeks and 2 days Christina-gestational hemorrhage: None. Date of delivery (Ultrasound estimated) : 07/02/2017 Uterus measures 13 x 7.6 x 9.7 cm. Normal in size and appearance. CERVIX: Long and closed. No cervical abnormality seen. RIGHT OVARY: Measures 2.3 x 1.9 x 1.1 cm. No mass lesion. Normal flow. LEFT OVARY: Measures 3.9 x 4.3 x 5.3 cm. No solid mass. Normal flow. Left ovary contains a simple appearing 3.2 centimeter x 2.3 centimeter x 3.7 centimeter cyst, most consistent with corpus luteal cyst. . FREE FLUID: None. OTHER FINDINGS: None. IMPRESSION: Single live intrauterine gestation with an estimated gestational age of 8 weeks and 2 days. No subchorionic hemorrhage. Left ovarian corpus luteal cyst only well appreciated on transabdominal imaging.
== END 2016-11-23 15:33 | disposition home or self-care (01) ==
LOC: H.ER 10:53
DX: O21.1 Hyperemesis gravidarum with metabolic disturbance (principal); O26.899 Other specified pregnancy related conditions, unspecified trimester
CPT/HCPCS: 76815; 76817; 80053; 81003; 85025; 96361; 96374; 99282; J2765; J7042

== ENCOUNTER 2016-11-26 02:46 | Emergency (ER) | payer SELFPAY ==
[2016-11-26 03:00] VITALS: BP 138/76; PULSE 89; RESP 16; TEMP 98.3; O2SAT 100
[2016-11-26 03:51] LABS: BASO % 0.4 % (0.0-2.0); EOS # 0.2 K/uL (0.0-0.7); HEMATOCRIT 33.2 % (34.0-47.0); LYMPH # 3.6 K/uL (1.0-4.3); LYMPH % 43.9 % (20.0-40.0); MEAN CELL VOLUME 77.6 fl (81.0-99.0); MEAN CORPUSCULAR HEMOGLOBIN 27.4 pg (27.0-31.0); MEAN CORPUSCULAR HGB CONC 35.3 g/dL (33.0-37.0); MEAN PLATELET VOLUME 8.8 fl (7.2-11.7); MONO % 12.1 % (0.0-10.0); NEUT # 3.4 K/uL (1.8-7.0); NEUT % 41.6 % (50.0-75.0); NRBC % 0.2 % (0.0-0.0); RED CELL DISTRIBUTION WIDTH 14.4 % (11.5-14.5); WHITE BLOOD COUNT 8.1 K/uL (4.8-10.8)
[2016-11-26 03:57] LABS: ALB/GLOB RATIO 1.2 (1.0-2.1); ALKALINE PHOSPHATASE 159 U/L (38-126); ALT/SGPT 34 U/L (9-52); AST/SGOT 24 U/L (14-36); BILIRUBIN,TOTAL 0.8 mg/dl (0.2-1.3); BLOOD UREA NITROGEN 13 mg/dl (7-17); CALCIUM 9.3 mg/dL (8.4-10.2); CARBON DIOXIDE 22 mmol/L (22-30); CHLORIDE 106 mmol/L (98-107); GFR AFRICAN-AMERICAN > 60; GLUCOSE,RANDOM 92 mg/dL (65-105); LIPASE 26 U/L (23-300); POTASSIUM 4.4 MMOL/L (3.6-5.0); TOTAL PROTEIN 6.4 G/DL (6.3-8.2)
[2016-11-26 03:59] LABS: SODIUM 136 mmol/l (132-148)
[2016-11-26] MEDS: Dextrose 5%/0.45% NS 1,000 ML IV SCH (04:40)
--- NOTE | 2016-11-26 05:12 | ED PDOC ---
HPI: Abdomen Time Seen by Provider: 11/26/16 03:05 Chief Complaint (Nursing): Abdominal Pain Chief Complaint (Provider): Abdominal Pain and Vomiting History Per: Patient History/Exam Limitations: no limitations Onset/Duration Of Symptoms: Hrs Associated Symptoms: Vomiting (x 2 days), Other (denies shortness of breath ). denies: Chest Pain Additional Complaint(s): Patient is a 36 y/o female with no past medical history who presents to the ED complaining of lower abdominal pain for the past few hours and vomiting x 2 days. Patient is 8 weeks (E-G) and was seen in ED multiple times for hyperemesis in . She reports taking diclegis with no relief for 2 days, and denies any vaginal bleeding, chest pain, shortness of breath, coughing, or diarrhea. PMD: Provider TBD Abnormal Vaginal Bleeding: No : 2 Para: 1 Past Medical History Reviewed: Historical Data, Nursing Documentation, Vital Signs Vital Signs: Last Vital Signs Temp 98.3 F 11/26/16 02:58 Pulse 89 11/26/16 02:58 Resp 16 11/26/16 02:58 BP 138/76 11/26/16 02:58 Pulse Ox 100 11/26/16 06:34 - Medical History PMH: Anemia Denies: HIV - Surgical History Surgical History: (x1) - Family History Family History: States: No Known Family Hx, Unknown Family Hx Denies: GA, CAD - Social History Current smoker - smoking cessation education provided: No Alcohol: None Drugs: Denies - Home Medications Home Medications: Ambulatory Orders Medication Instructions Recorded Cetirizine HCl [Zyrtec] 10 mg PO DAILY #10 capsule 08/14/15 Hydrocortisone 2.5% (Rectal) 30 applic MA BID #1 tube 08/14/15 [Anusol-HC] Ibuprofen [Motrin Tab] 400 mg PO Q6 PRN #0 tab 12/27/15 Levofloxacin [Levaquin] 750 mg PO DAILY #0 tablet 12/27/15 Loratadine [Claritin] 10 mg PO DAILY #0 tab 12/27/15 Promethazine/Codeine 5 ml PO Q6 PRN #1 bottle 12/27/15 [Phenergan/Codeine Oral Syrup] Methylprednisolone [Medrol Dose 4 mg PO DAILY #21 mg 01/02/16 Pack (21 tabs)] Promethazine HCl/Codeine 5 ml PO HS #80 ml 01/02/16 [Prometh-Codein 6.25-10 mg/5 ml] Amoxicillin 875 mg PO BID #20 tablet 01/19/16 Ibuprofen [Motrin] 400 mg PO Q6 PRN #20 tab 01/19/16 Dicyclomine [Bentyl] 20 mg PO Q6H PRN #20 tab 02/07/16 Famotidine [Pepcid] 20 mg PO BID #28 tab 02/07/16 Ondansetron ODT [Zofran ODT] 4 mg PO QID #20 odt 02/07/16 Cyclobenzaprine [Cyclobenzaprine 10 mg PO BID #15 tab 08/26/16 HCl] Ibuprofen [Motrin Tab] 600 mg PO Q6 #30 tab 08/26/16 Non-Formulary 1 ea .ROUTE Q6 #1 ea 11/12/16 Ondansetron [Zofran] 4 mg PO Q8H PRN #8 tab 11/15/16 Doxylamine/Pyridoxine HCl (B6) 1 each PO DAILY PRN #20 tablet. 11/23/16 [Ita Silveira 10-10 mg Tablet] Metoclopramide [Reglan] 10 mg PO Q6 PRN #12 tab 11/26/16 - Allergies Allergies/Adverse Reactions: Allergies Allergy/AdvReac Type Severity Reaction Status Date / Time No Known Allergies Allergy Verified 11/26/16 02:58 Review of Systems ROS Statement: Except As Marked, All Systems Reviewed And Found Negative Cardiovascular: Negative for: Chest Pain Respiratory: Negative for: Cough, Shortness of Breath Gastrointestinal: Positive for: Vomiting, Abdominal Pain (lower abdomen). Negative for: Diarrhea Genitourinary Female: Negative for: Vaginal Bleeding Physical Exam - Reviewed Nursing Documentation Reviewed: Yes Vital Signs Reviewed: Yes - Physical Exam Appears: Positive for: Uncomfortable Head Exam: Positive for: ATRAUMATIC, NORMAL INSPECTION, NORMOCEPHALIC Skin: Positive for: Normal Color, Warm, Dry Eye Exam: Positive for: Normal appearance, EOMI, PERRL ENT: Positive for: Other (Mucous membranes dry) Neck: Positive for: Normal, Supple Cardiovascular/Chest: Positive for: Regular Rate, Rhythm. Negative for: Murmur Respiratory: Positive for: Normal Breath Sounds. Negative for: Respiratory Distress Gastrointestinal/Abdominal: Positive for: Soft, Tenderness (mild suprapubic tenderness) Back: Positive for: Normal Inspection. Negative for: L CVA Tenderness, R CVA Tenderness, Vertebral Tenderness Extremity: Positive for: Normal ROM. Negative for: Tenderness, Pedal Edema Neurologic/Psych: Positive for: Alert, Oriented (x3) - Laboratory Results Result Diagrams: 11/26/16 03:47 11/26/16 03:47 - ECG O2 Sat by Pulse Oximetry: 100 (RA) Pulse Ox Interpretation: Normal Medical Decision Making Medical Decision Making: Time: 0305 Initial Impression: 36 y/o female with vomiting in setting of known hyperemesis gravidarum Initial Plan: -Labs -Beta-HCG -ED Urine Dipstick -Dextrose IV 1000mls/hr -Metoclopramide 10 mg IVP -Heplock Insertion -Urinalysis -OB Transvaginal US 0527 -Acetaminophen 650mg PO 0610 OB Transvaginal US FINDINGS: There is a single live intrauterine . Qulin-rump length measurement of 2.58 cm and mean gestational sac size of 3.43 cm yielded estimated gestational age of 9 weeks. Estimated due date is 07/01/2017. Estimated gestational age by date is 9 weeks 4 days. heart rate is 181 beats per minute. A well formed yolk sac is noted. Uterus measures 11.2 x 10 x 6.9 cm. There is a small cyst in uterus of 6 mm. There is a left intramural fundal fibroid of 2.4 x 2.9 x 1.8 cm. A second left intramural anterior fibroid measures 1.5 x 1.3 x 1.5 cm. There are several nabothian cysts. The right ovary measures 2.6 x 2.2 x 1.6 cm. The left ovary measures 3.7 x 3.2 x 2.7 cm with a corpus luteum cyst of 2.8 x 2.4 x 2 cm. Symmetrical color Doppler flow was demonstrated to both ovaries. IMPRESSION: 1. Single live intrauterine fetus at 9 weeks gestation. 2. Uterine myomas. 0620 Explained results of US to patient, patient states she is already aware of her history of fibroids. Provider explained that fibroids are likely the reason for her abdominal pain, patient agrees to follow up with PCP. Clinical Impression: Abdominal pain in , uterine fibroids, and hyperemesis Upon provider evaluation patient is medically stable, and requires no further treatment in the ED at this time. Counseling was provided and all questions were answered regarding diagnosis and need for follow up with PCP. There is agreement to discharge plan. Return if symptoms persist or worsen. Scribe Attestation: Documented by Eliezer Leyva, acting as a scribe for Neeta Saavedra MD Provider Scribe Attestation: All medical record entries made by the Scribe were at my direction and personally dictated by me. I have reviewed the chart and agree that the record accurately reflects my personal performance of the history, physical exam, medical decision making, and the department course for this patient. I have also personally directed, reviewed, and agree with the discharge instructions and disposition. Disposition - Clinical Impression Clinical Impression: Abdominal pain during , Hyperemesis, Fibroid uterus - Disposition Disposition: Routine/Home Disposition Time: 06:20 Condition: IMPROVED Prescriptions: Metoclopramide [Reglan] 10 mg PO Q6 PRN #12 tab PRN Reason: Nausea/Vomiting Instructions: Hyperemesis Gravidarum (ED) Forms: [employer] (Portuguese) Print Language: URDU
--- NOTE | 2016-11-26 06:10 | US ---
EXAM: US , Transvaginal EXAM DATE/TIME: 11/26/2016 3:14 AM CLINICAL HISTORY: 36 years old, female; Pain; complicated by abdominal or pelvic pain; Upper; First trimester; Gestational age or lmp: 09/20/2016; ; Additional info: Abd pain in preg TECHNIQUE: Real-time transvaginal obstetrical ultrasound of the maternal pelvis and a first trimester with image documentation. Transvaginal imaging was used for better evaluation of the fetus and adnexa. COMPARISON: US - OB PREG 1ST TRI OB TRANSVAG 11/23/2016 1:01:30 PM FINDINGS: There is a single live intrauterine . Sylvarena-rump length measurement of 2.58 cm and mean gestational sac size of 3.43 cm yielded estimated gestational age of 9 weeks. Estimated due date is 07/01/2017. Estimated gestational age by date is 9 weeks 4 days. heart rate is 181 beats per minute. A well formed yolk sac is noted. Uterus measures 11.2 x 10 x 6.9 cm. There is a small cyst in uterus of 6 mm. There is a left intramural fundal fibroid of 2.4 x 2.9 x 1.8 cm. A second left intramural anterior fibroid measures 1.5 x 1.3 x 1.5 cm. There are several nabothian cysts. The right ovary measures 2.6 x 2.2 x 1.6 cm. The left ovary measures 3.7 x 3.2 x 2.7 cm with a corpus luteum cyst of 2.8 x 2.4 x 2 cm. Symmetrical color Doppler flow was demonstrated to both ovaries. IMPRESSION: 1. Single live intrauterine fetus at 9 weeks gestation. 2. Uterine myomas.
== END 2016-11-26 06:20 | disposition home or self-care (01) ==
LOC: H.ER 02:46
DX: O21.1 Hyperemesis gravidarum with metabolic disturbance (principal)
CPT/HCPCS: 76817; 80053; 83690; 84702; 85025; 96361; 96374; 99283; J2765; J7042

== ENCOUNTER 2016-12-01 18:11 | Emergency (ER) | payer SELFPAY ==
--- NOTE | 2016-12-01 18:59 | ED PDOC ---
HPI: General Adult Time Seen by Provider: 12/01/16 18:23 Chief Complaint (Nursing): Abdominal Pain History Per: Patient Additional Complaint(s): Pt. states today she developed 3 episodes of non-bloody diarrhea. States that she is currently 9 weeks . Reports that she has also been vomiting and has been to this ED multiple times due to the vomiting. She was initially given Zofran with good relief but she depleted the supply. She return to ED for the vomiting and was then prescribed Diclegis which she has been taking 1 tab daily PRN vomiting which has not provided any relief. Pt. states she subsequently returned on 11/26/2016 and was then prescribed Reglan but her pharmacist did not fill the Rx because she is . Denies hematemesis, fever, recent travel, sick contacts, weakness, vaginal bleeding, dysuria, hematuria. Also c/o R sided pelvic pain which has been present for 2 weeks ever since she started coming to ED for her vomiting. Past Medical History Reviewed: Historical Data, Nursing Documentation, Vital Signs Vital Signs: Last Vital Signs Temp 98.5 F 12/01/16 18:18 Pulse 71 12/01/16 18:18 Resp 16 12/01/16 18:18 BP 105/56 L 12/01/16 18:18 Pulse Ox 99 12/01/16 19:32 - Medical History PMH: Anemia Denies: HIV - Surgical History Surgical History: (x1) - Family History Family History: States: No Known Family Hx Denies: NH, CAD - Home Medications Home Medications: Ambulatory Orders Medication Instructions Recorded Cetirizine HCl [Zyrtec] 10 mg PO DAILY #10 capsule 08/14/15 Hydrocortisone 2.5% (Rectal) 30 applic [place] BID #1 tube 08/14/15 [Anusol-HC] Ibuprofen [Motrin Tab] 400 mg PO Q6 PRN #0 tab 12/27/15 Levofloxacin [Levaquin] 750 mg PO DAILY #0 tablet 12/27/15 Loratadine [Claritin] 10 mg PO DAILY #0 tab 12/27/15 Promethazine/Codeine 5 ml PO Q6 PRN #1 bottle 12/27/15 [Phenergan/Codeine Oral Syrup] Methylprednisolone [Medrol Dose 4 mg PO DAILY #21 mg 01/02/16 Pack (21 tabs)] Promethazine HCl/Codeine 5 ml PO HS #80 ml 01/02/16 [Prometh-Codein 6.25-10 mg/5 ml] Amoxicillin 875 mg PO BID #20 tablet 01/19/16 Ibuprofen [Motrin] 400 mg PO Q6 PRN #20 tab 01/19/16 Dicyclomine [Bentyl] 20 mg PO Q6H PRN #20 tab 02/07/16 Famotidine [Pepcid] 20 mg PO BID #28 tab 02/07/16 Ondansetron ODT [Zofran ODT] 4 mg PO QID #20 odt 02/07/16 Cyclobenzaprine [Cyclobenzaprine 10 mg PO BID #15 tab 08/26/16 HCl] Ibuprofen [Motrin Tab] 600 mg PO Q6 #30 tab 08/26/16 Non-Formulary 1 ea .ROUTE Q6 #1 ea 11/12/16 Ondansetron [Zofran] 4 mg PO Q8H PRN #8 tab 11/15/16 Doxylamine/Pyridoxine HCl (B6) 1 each PO DAILY PRN #20 tablet. 11/23/16 [Ita Silveira 10-10 mg Tablet] Metoclopramide [Reglan] 10 mg PO Q6 PRN #12 tab 11/26/16 - Allergies Allergies/Adverse Reactions: Allergies Allergy/AdvReac Type Severity Reaction Status Date / Time No Known Allergies Allergy Verified 11/26/16 02:58 Review of Systems ROS Statement: Except As Marked, All Systems Reviewed And Found Negative Gastrointestinal: Positive for: Nausea, Vomiting, Diarrhea Physical Exam - Reviewed Nursing Documentation Reviewed: Yes Vital Signs Reviewed: Yes - Physical Exam Appears: Positive for: Well, Non-toxic, No Acute Distress Head Exam: Positive for: ATRAUMATIC, NORMAL INSPECTION, NORMOCEPHALIC Skin: Positive for: Normal Color, Warm. Negative for: Rash Eye Exam: Positive for: EOMI, Normal appearance, PERRL ENT: Positive for: Normal ENT Inspection Neck: Positive for: Normal, Painless ROM Cardiovascular/Chest: Positive for: Regular Rate, Rhythm Respiratory: Positive for: CNT, Normal Breath Sounds Gastrointestinal/Abdominal: Positive for: Normal Exam, Bowel Sounds, Soft. Negative for: Tenderness Back: Positive for: Normal Inspection. Negative for: L CVA Tenderness, R CVA Tenderness Extremity: Positive for: Normal ROM Neurologic/Psych: Positive for: Alert, Oriented - Laboratory Results Result Diagrams: 12/01/16 19:00 12/01/16 19:00 Urine POC: Sent To The Lab For Verification Urine dip results: Positive for: Blood (moderate), Ketones (trace). Negative for: Leukocyte Esterase, Nitrate, Glucose, Bilirubin, Protein - ECG O2 Sat by Pulse Oximetry: 99 - Progress ED Course And Treament: Labs ordered. IV LR bolus ordered. Reglan 10mg IVPB ordered. Previous US from previous visits confirm IUP. As per pharmacy LR is no longer low in stock. Disposition - Clinical Impression Clinical Impression: Hyperemesis - Patient ED Disposition Is Patient to be Admitted: Transfer of Care (Signed out to Cecile PERKINS pending re -evaluation.) - Disposition Disposition Time: 20:00 Condition: STABLE Forms: [employer] (Uzbek)
[2016-12-01] MEDS ORDERED: Dextrose 5%/0.45% NS 1,000 ML IV SCH (19:00)
[2016-12-01 19:07] LABS: BASO % 0.4 % (0.0-2.0); EOS # 0.1 K/uL (0.0-0.7); EOS % 1.5 % (0.0-4.0); HEMATOCRIT 35.2 % (34.0-47.0); LYMPH # 3.2 K/uL (1.0-4.3); LYMPH % 40.3 % (20.0-40.0); MEAN CORPUSCULAR HEMOGLOBIN 26.8 pg (27.0-31.0); MEAN CORPUSCULAR HGB CONC 33.9 g/dL (33.0-37.0); MONO # 1.1 K/uL (0.0-0.8); NEUT # 3.5 K/uL (1.8-7.0); NEUT % 43.8 % (50.0-75.0); NRBC % 0.6 % (0.0-0.0); RED CELL DISTRIBUTION WIDTH 14.5 % (11.5-14.5); WHITE BLOOD COUNT 7.9 K/uL (4.8-10.8)
[2016-12-01] MEDS: Lactated Ringer's 1,000 ML IV SCH (19:09)
[2016-12-01 19:20] LABS: ALB/GLOB RATIO 1.2 (1.0-2.1); ALKALINE PHOSPHATASE 140 U/L (38-126); ALT/SGPT 32 U/L (9-52); AST/SGOT 31 U/L (14-36); BILIRUBIN,TOTAL 0.5 mg/dl (0.2-1.3); BLOOD UREA NITROGEN 13 mg/dl (7-17); CALCIUM 9.2 mg/dL (8.4-10.2); CARBON DIOXIDE 20 mmol/L (22-30); CHLORIDE 105 mmol/L (98-107); GFR AFRICAN-AMERICAN > 60; GLUCOSE,RANDOM 94 mg/dL (65-105); SODIUM 138 mmol/l (132-148); TOTAL PROTEIN 6.8 G/DL (6.3-8.2)
[2016-12-01 20:46] LABS: RBC URINE 4 /hpf (0-3); URINE BACTERIA FEW (<OCC); URINE BILIRUBIN NEGATIVE (NEGATIVE); URINE BLOOD SMALL (NEGATIVE); URINE COLOR YELLOW (YELLOW); URINE GLUCOSE (UA) NEG (Normal); URINE KETONE NEGATIVE (NEGATIVE); URINE LEUKOCYTE ESTERASE NEG Leu/uL (Negative); URINE PROTEIN NEGATIVE (NEGATIVE); WBC URINE 4 /hpf (0-5)
[2016-12-01 20:51] VITALS: BP 113/57; PULSE 72; RESP 18; TEMP 98; O2SAT 100
--- NOTE | 2016-12-01 21:58 | ED PDOC ---
- Laboratory Results Result Diagrams: 12/01/16 19:00 12/01/16 19:00 Urine POC: Sent To The Lab For Verification - ECG O2 Sat by Pulse Oximetry: 100 - Progress ED Course And Treament: Case endorsed to travel writer from Joyce PERKINS pending urine, PO challenge On re-eval, patient states she is feeling better. Tolerated PO. Patient/family educated on findings, discharged with instructions to follow up Visual Effects Editor in 2-3 days. Advised fluids, bland diet, vitamins. Patient has Diclegis tablets left, given instructions on proper usage. Return to ED for worsening/concerning symptoms. Disposition - Clinical Impression Clinical Impression: Hyperemesis - POA Present On Arrival: None - Disposition Referrals: [facility] [Outside] Disposition: Routine/Home Disposition Time: 21:57 Condition: IMPROVED Additional Instructions: Take Diclegis as directed: Two tablets at bedtime on day 1 and 2; if symptoms persist, take 1 tablet in morning and 2 tablets at bedtime on day 3; if symptoms persist, may increase to 1 tablet in morning, 1 tablet mid-afternoon, and 2 tablets at bedtime on day 4. Maximum 4 tablets/day. Follow up with Visual Effects Editor in 2-3 days. Drink plenty of fluids. Return to ED for worsening/concerning symptoms. Instructions: Hyperemesis Gravidarum (ED) Print Language: YAKUT
== END 2016-12-01 22:06 | disposition home or self-care (01) ==
LOC: H.ER 18:11
DX: O21.1 Hyperemesis gravidarum with metabolic disturbance (principal)
CPT/HCPCS: 80053; 81003; 82948; 85025; 87086; 96374; 99283; J2765; J7120

== ENCOUNTER 2016-12-05 21:40 | Emergency (ER) | payer SELFPAY ==
--- NOTE | 2016-12-05 21:56 | ED PDOC ---
HPI: General Adult Time Seen by Provider: 12/05/16 21:56 Chief Complaint (Nursing): Abdominal Pain Chief Complaint (Provider): with abd pain, sore throat History Per: Construction Site Manager (Patient's daughter at bedside is translating in Tuvaluan for patient) Additional Complaint(s): Patient is 10 weeks and presents to ED with burning pain to throat and abdomen after taking hyperthyroid medication for the first time this evening. Patient vomited x 1 after taking med and now has discomfort to throat. She denies any chest pain, SOB or HERRERA. Patient denies any vaginal bleeding. She is . Past Medical History Reviewed: Historical Data, Nursing Documentation, Vital Signs Vital Signs: Last Vital Signs Temp 98.4 F 12/05/16 21:44 Pulse 85 12/05/16 21:44 Resp 16 12/05/16 21:44 BP 116/69 12/05/16 21:44 Pulse Ox 100 12/05/16 22:41 - Medical History PMH: Anemia (unknown), Hyperthyroidism - Surgical History Surgical History: (x1) - Family History Family History: States: No Known Family Hx - Living Arrangements Living Arrangements: With Family - Social History Current smoker - smoking cessation education provided: No Alcohol: None Drugs: Denies - Home Medications Home Medications: Ambulatory Orders Medication Instructions Recorded Cetirizine HCl [Zyrtec] 10 mg PO DAILY #10 capsule 08/14/15 Hydrocortisone 2.5% (Rectal) 30 applic [place] BID #1 tube 08/14/15 [Anusol-HC] Ibuprofen [Motrin Tab] 400 mg PO Q6 PRN #0 tab 12/27/15 Levofloxacin [Levaquin] 750 mg PO DAILY #0 tablet 12/27/15 Loratadine [Claritin] 10 mg PO DAILY #0 tab 12/27/15 Promethazine/Codeine 5 ml PO Q6 PRN #1 bottle 12/27/15 [Phenergan/Codeine Oral Syrup] Methylprednisolone [Medrol Dose 4 mg PO DAILY #21 mg 01/02/16 Pack (21 tabs)] Promethazine HCl/Codeine 5 ml PO HS #80 ml 01/02/16 [Prometh-Codein 6.25-10 mg/5 ml] Amoxicillin 875 mg PO BID #20 tablet 01/19/16 Ibuprofen [Motrin] 400 mg PO Q6 PRN #20 tab 01/19/16 Dicyclomine [Bentyl] 20 mg PO Q6H PRN #20 tab 02/07/16 Famotidine [Pepcid] 20 mg PO BID #28 tab 02/07/16 Ondansetron ODT [Zofran ODT] 4 mg PO QID #20 odt 02/07/16 Cyclobenzaprine [Cyclobenzaprine 10 mg PO BID #15 tab 08/26/16 HCl] Ibuprofen [Motrin Tab] 600 mg PO Q6 #30 tab 08/26/16 Non-Formulary 1 ea .ROUTE Q6 #1 ea 11/12/16 Ondansetron [Zofran] 4 mg PO Q8H PRN #8 tab 11/15/16 Doxylamine/Pyridoxine HCl (B6) 1 each PO DAILY PRN #20 tablet. 11/23/16 [Ita Silveira 10-10 mg Tablet] Metoclopramide [Reglan] 10 mg PO Q6 PRN #12 tab 11/26/16 Famotidine [Pepcid] 20 mg PO DAILY #30 tab 12/05/16 - Allergies Allergies/Adverse Reactions: Allergies Allergy/AdvReac Type Severity Reaction Status Date / Time No Known Allergies Allergy Verified 11/26/16 02:58 Review of Systems ROS Statement: Except As Marked, All Systems Reviewed And Found Negative Constitutional: Negative for: Fever, Chills Cardiovascular: Negative for: Chest Pain Respiratory: Negative for: Cough Gastrointestinal: Positive for: Nausea, Vomiting, Abdominal Pain Genitourinary Female: Negative for: Dysuria, Vaginal Discharge, Vaginal Bleeding Neurological: Negative for: Headache, Dizziness Physical Exam - Reviewed Nursing Documentation Reviewed: Yes Vital Signs Reviewed: Yes - Physical Exam Appears: Positive for: Well, Non-toxic, No Acute Distress Skin: Negative for: Rash Eye Exam: Positive for: Normal appearance Cardiovascular/Chest: Positive for: Regular Rate, Rhythm Respiratory: Positive for: Normal Breath Sounds Gastrointestinal/Abdominal: Positive for: Soft. Negative for: Tenderness, Distended, Guarding, Rebound Extremity: Positive for: Normal ROM Neurologic/Psych: Positive for: Alert, Oriented - Laboratory Results Result Diagrams: 12/05/16 22:10 12/05/16 22:10 Urine POC: Positive Urine dip results: Negative for: Leukocyte Esterase, Blood, Nitrate, Ketones, Glucose, Bilirubin, Protein - ECG O2 Sat by Pulse Oximetry: 100 Pulse Ox Interpretation: Normal - Other Rad OB US X-Ray: Read By Radiologist X-Ray Interpretation: see below Medical Decision Making Medical Decision Makin36 year old female with abd pain and throat discomfort after taking new medication this evening. Impression: Acid reflux Plan: CBC CMP Urine dip IM zofran PO maalox PO pepcid OB US US: FINDINGS: Gestation: Single live intrauterine gestation. heart rate of 158 beats per minute. [place]-rump length of 3.77 cm, correlating with gestational age of 10 weeks 5 days. Uterus/cervix: No subchorionic hemorrhage. No cervical dilatation or effacement. Two uterine masses, larger measuring 3.4 x 1.8 x 2.7 cm. Ovaries: RIGHT ovary: Normal. LEFT ovary: 2.3 x 2.5 x 2.1 cm anechoic lesion. No adnexal masses. Free fluid: No significant free fluid. IMPRESSION: 1. Single live intrauterine gestation. 2. Probable fibroid uterus. 3. LEFT ovarian cyst. Patient is aware of all diagnostic test results, all questions answered. Patient states she feels better. She is tolerating liquids without further emesis. Reflux symptoms have improved. Rx given for Pepcid. Patient was advised to take medication daily as directed. She was instructed to follow up with her OB in 2-3 days. Disposition - Clinical Impression Clinical Impression: Acid reflux - Patient ED Disposition Is Patient to be Admitted: No Counseled Patient/Family Regarding: Studies Performed, Diagnosis, Need For Followup, Rx Given - Disposition Referrals: [facility] [Outside] Disposition: Routine/Home Disposition Time: 23:17 Condition: IMPROVED Additional Instructions: TAKE RX MEDS DIRECTED. FOLLOW DIETARY INSTRUCTIONS. CONTINUE WITH YOUR OTHER HOME MEDICATIONS. FOLLOW UP IN 2-3 DAYS WITH WOMEN[facility]S CLINIC. Prescriptions: Famotidine [Pepcid] 20 mg PO DAILY #30 tab Instructions: Diet for Ulcers and Gastritis (ED), Gastroesophageal Reflux Disease (ED) Forms: [employer] (Tuvaluan) Print Language: BURUNDIAN Results - Lab Results Lab Results: 12/05/16 12/05/16 22:10 22:10 WBC 8.9 RBC 4.25 Hgb 11.4 L Hct 33.2 L MCV 78.1 L MCH 26.8 L MCHC 34.3 RDW 14.3 Plt Count 237 MPV 9.1 Neut % (Auto) 45.5 L Lymph % (Auto) 40.3 H Dale % (Auto) 11.5 H Eos % (Auto) 2.4 Baso % (Auto) 0.3 Neut # 4.0 Lymph # 3.6 Dale # 1.0 H Eos # 0.2 Baso # 0.0 Sodium 136 Potassium 4.0 Chloride 106 Carbon Dioxide 19 L Anion Gap 15 BUN 10 Creatinine 0.4 L Est GFR ( Amer) > 60 Est GFR (Non-Af Amer) > 60 Random Glucose 91 Calcium 8.8 Total Bilirubin 0.6 AST 24 ALT 30 Alkaline Phosphatase 145 H Total Protein 6.5 Albumin 3.6 Globulin 2.9 Albumin/Globulin Ratio 1.3
[2016-12-05] MEDS ORDERED: Alum-Mag Hydrox-Simethicone Susp (30 mL) PO STA (22:04)
[2016-12-05 22:17] LABS: BASO % 0.3 % (0.0-2.0); EOS # 0.2 K/uL (0.0-0.7); EOS % 2.4 % (0.0-4.0); HEMATOCRIT 33.2 % (34.0-47.0); LYMPH # 3.6 K/uL (1.0-4.3); LYMPH % 40.3 % (20.0-40.0); MEAN CELL VOLUME 78.1 fl (81.0-99.0); MEAN CORPUSCULAR HEMOGLOBIN 26.8 pg (27.0-31.0); MEAN CORPUSCULAR HGB CONC 34.3 g/dL (33.0-37.0); MEAN PLATELET VOLUME 9.1 fl (7.2-11.7); MONO % 11.5 % (0.0-10.0); NEUT % 45.5 % (50.0-75.0); NRBC % 0.8 % (0.0-0.0); RED CELL DISTRIBUTION WIDTH 14.3 % (11.5-14.5); WHITE BLOOD COUNT 8.9 K/uL (4.8-10.8)
[2016-12-05 22:27] LABS: ALB/GLOB RATIO 1.3 (1.0-2.1); ALKALINE PHOSPHATASE 145 U/L (38-126); ALT/SGPT 30 U/L (9-52); AST/SGOT 24 U/L (14-36); BILIRUBIN,TOTAL 0.6 mg/dl (0.2-1.3); BLOOD UREA NITROGEN 10 mg/dl (7-17); CALCIUM 8.8 mg/dL (8.4-10.2); CARBON DIOXIDE 19 mmol/L (22-30); CHLORIDE 106 mmol/L (98-107); GFR AFRICAN-AMERICAN > 60; GLUCOSE,RANDOM 91 mg/dL (65-105); SODIUM 136 mmol/l (132-148); TOTAL PROTEIN 6.5 G/DL (6.3-8.2)
--- NOTE | 2016-12-05 23:12 | US ---
EXAM: US , Transvaginal CLINICAL HISTORY: 36 years old, female; Pain; Other: Abd pain; Gestational age or lmp: 09/20/16; ; Additional info: with abd pain TECHNIQUE: Real-time transvaginal obstetrical ultrasound of the maternal pelvis and a first trimester with image documentation. Transvaginal imaging was used for better evaluation of the fetus and adnexa. COMPARISON: US - OB TRANSVAGINAL 11/26/2016 3:51:00 AM FINDINGS: Gestation: Single live intrauterine gestation. heart rate of 158 beats per minute. [place]-rump length of 3.77 cm, correlating with gestational age of 10 weeks 5 days. Uterus/cervix: No subchorionic hemorrhage. No cervical dilatation or effacement. Two uterine masses, larger measuring 3.4 x 1.8 x 2.7 cm. Ovaries: RIGHT ovary: Normal. LEFT ovary: 2.3 x 2.5 x 2.1 cm anechoic lesion. No adnexal masses. Free fluid: No significant free fluid. IMPRESSION: 1. Single live intrauterine gestation. 2. Probable fibroid uterus. 3. LEFT ovarian cyst.
[2016-12-05 23:30] VITALS: BP 122/78; PULSE 84; RESP 18; TEMP 98; O2SAT 99
== END 2016-12-05 23:30 | disposition home or self-care (01) ==
LOC: H.ER 21:40
DX: N83.202 Unspecified ovarian cyst, left side (principal); O34.81 Maternal care for other abnormalities of pelvic organs, first trimester; K21.9 Gastro-esophageal reflux disease without esophagitis; E05.90 Thyrotoxicosis, unspecified without thyrotoxic crisis or storm; Z3A.10 10 weeks gestation of pregnancy
CPT/HCPCS: 76817; 80053; 85025; 96372; 99282; J2405

== ENCOUNTER 2016-12-23 18:25 | Emergency (ER) | payer SELFPAY ==
[2016-12-23 19:13] VITALS: BP 108/51; PULSE 83; RESP 18; TEMP 99.3; O2SAT 99
--- NOTE | 2016-12-23 19:40 | ED PDOC ---
HPI:Nausea, Vomiting, Diarrhea Time Seen by Provider: 12/23/16 19:32 Chief Complaint (Nursing): GI Problem Chief Complaint (Provider): vomiting and diarrhea History Per: Patient History/Exam Limitations: no limitations Onset/Duration Of Symptoms: Days (1), Sudden Onset, Persistent Have you had recent travel within the past 21 days to any of the following countries: [place], [place], [place] or [place]?: No Quality Of Discomfort: Cramping, "Pain" Associated Symptoms: Chills, Nausea, Vomiting (nonbilious nonbloody), Diarrhea ( watery nonbloody). denies: Fever, Urinary Symptoms Additional Complaint(s): Also is [address] [facility] for hi risk due to chronic medical conditions Past Medical History Reviewed: Historical Data, Nursing Documentation, Vital Signs Vital Signs: Last Vital Signs Temp 99.3 F 12/23/16 19:10 Pulse 83 12/23/16 19:10 Resp 18 12/23/16 19:10 BP 108/51 L 12/23/16 19:10 Pulse Ox 99 12/23/16 19:10 - Medical History PMH: Anemia (unknown), Hyperthyroidism Denies: HIV - Surgical History Surgical History: (x1) - Family History Family History: States: Diabetes, Hypertension - Social History Current smoker - smoking cessation education provided: No Alcohol: None - Home Medications Home Medications: Ambulatory Orders Medication Instructions Recorded Cetirizine HCl [Zyrtec] 10 mg PO DAILY #10 capsule 08/14/15 Hydrocortisone 2.5% (Rectal) 30 applic [place] BID #1 tube 08/14/15 [Anusol-HC] Ibuprofen [Motrin Tab] 400 mg PO Q6 PRN #0 tab 12/27/15 Levofloxacin [Levaquin] 750 mg PO DAILY #0 tablet 12/27/15 Loratadine [Claritin] 10 mg PO DAILY #0 tab 12/27/15 Promethazine/Codeine 5 ml PO Q6 PRN #1 bottle 12/27/15 [Phenergan/Codeine Oral Syrup] Methylprednisolone [Medrol Dose 4 mg PO DAILY #21 mg 01/02/16 Pack (21 tabs)] Promethazine HCl/Codeine 5 ml PO HS #80 ml 01/02/16 [Prometh-Codein 6.25-10 mg/5 ml] Amoxicillin 875 mg PO BID #20 tablet 01/19/16 Ibuprofen [Motrin] 400 mg PO Q6 PRN #20 tab 01/19/16 Dicyclomine [Bentyl] 20 mg PO Q6H PRN #20 tab 02/07/16 Famotidine [Pepcid] 20 mg PO BID #28 tab 02/07/16 Ondansetron ODT [Zofran ODT] 4 mg PO QID #20 odt 02/07/16 Cyclobenzaprine [Cyclobenzaprine 10 mg PO BID #15 tab 08/26/16 HCl] Ibuprofen [Motrin Tab] 600 mg PO Q6 #30 tab 08/26/16 Non-Formulary 1 ea .ROUTE Q6 #1 ea 11/12/16 Ondansetron [Zofran] 4 mg PO Q8H PRN #8 tab 11/15/16 Doxylamine/Pyridoxine HCl (B6) 1 each PO DAILY PRN #20 tablet. 11/23/16 [Ita Silveira 10-10 mg Tablet] Metoclopramide [Reglan] 10 mg PO Q6 PRN #12 tab 11/26/16 Famotidine [Pepcid] 20 mg PO DAILY #30 tab 12/05/16 Ondansetron ODT [Zofran ODT] 1 odt PO Q6 PRN #20 odt 12/23/16 - Allergies Allergies/Adverse Reactions: Allergies Allergy/AdvReac Type Severity Reaction Status Date / Time No Known Allergies Allergy Verified 12/23/16 19:09 Review of Systems ROS Statement: Except As Marked, All Systems Reviewed And Found Negative (and as per HPI) Constitutional: Positive for: Chills, Weakness, Malaise. Negative for: Fever Gastrointestinal: Positive for: Nausea, Vomiting, Abdominal Pain, Diarrhea Genitourinary Female: Positive for: Pelvic Pain. Negative for: Dysuria, Frequency, Vaginal Discharge, Vaginal Bleeding Physical Exam - Reviewed Nursing Documentation Reviewed: Yes Vital Signs Reviewed: Yes - Physical Exam Appears: Positive for: Non-toxic, In Acute Distress (gastrointestinal) Head Exam: Positive for: ATRAUMATIC, NORMOCEPHALIC Skin: Positive for: Warm, Dry Eye Exam: Positive for: EOMI, PERRL ENT: Positive for: Other (dry mucus membranes) Neck: Positive for: Painless ROM, Supple Cardiovascular/Chest: Positive for: Regular Rate, Rhythm, Chest Non Tender Respiratory: Positive for: Normal Breath Sounds. Negative for: Wheezing Gastrointestinal/Abdominal: Positive for: Bowel Sounds, Soft, Tenderness ( diffuse). Negative for: Mass, Distended, Guarding, Rebound Back: Positive for: Normal Inspection. Negative for: Decreased ROM Extremity: Positive for: Normal ROM. Negative for: Deformity Lymphatic: Negative for: Adenopathy Neurologic/Psych: Positive for: Alert. Negative for: Motor/Sensory Deficits - Laboratory Results Result Diagrams: 12/23/16 20:29 12/23/16 20:29 - ECG O2 Sat by Pulse Oximetry: 99 Pulse Ox Interpretation: Normal - Progress ED Course And Treament: Accession No. : [id number] Patient Name / ID : ADILENE OTERO / [id number] Exam Date : 12/23/2016 21:12:24 ( Approved ) Study Comment : Sex / Age : F / 36Y Creator : EMELYN KENNY Dictator : Metal Expediter : Manager Production : EMELYN KENNY Approver2 : Report Date : 12/23/2016 22:17:00 My Comment : [facility] Division of Radiology [address] [place] [address] Tel. no. Patient Name: BRANDEN ORNELAS Pt. Address: [address] [place] [address] Med. Rec #: [id number] [place] [address]: Tang HURST, Barb Amaro Pt CELL Order Location: [facility] : 1980 Female Age: 36 Order #: [id number] Reason for exam: epigastric pain Ultrasound GALLBLADDER HEPATIC Exam Date: 12/23/16 This imaging exam was performed at [facility] EXAM: US Abdomen Limited, Right Upper Quadrant CLINICAL HISTORY: 36 years old, female; Pain; Abdominal pain; Epigastric; ; Additional info: Epigastric pain TECHNIQUE: Real-time ultrasound of the right upper quadrant with image documentation. COMPARISON: No relevant prior studies available. FINDINGS: Liver: Unremarkable in echogenicity and size measuring 13 cm in longitudinal dimension. No intrahepatic bile duct dilation. Gallbladder: No acute findings. No gallstones. Common bile duct: No stones. No dilation, measuring 3 mm. Pancreas: Visualization of the pancreas is limited by overlying bowel gas. Right kidney: No acute findings. No obstructing stones. No solid mass. No hydronephrosis. IMPRESSION: Unremarkable sonographic evaluation of the right upper quadrant, as detailed above. Limited evaluation of the pancreas, secondary to overlying bowel gas. Dictated By: Emelyn Kenny MD Dictated Date/Time: 12/23/162216 Signed By: Emelyn Kenny MD Date Signed: [id number] Transcribed By: NIRAV Transcribe Date/Time : 12/23/162216 NOLVIA/SITA Accession No. : [id number] Patient Name / ID : ADILENE OTERO / [id number] Exam Date : 12/23/2016 21:01:49 ( Approved ) Study Comment : Sex / Age : F / 36Y Creator : EMELYN KENNY Dictator : Metal Expediter : Manager Production : EMELYN KENNY Approver2 : Report Date : 12/23/2016 22:27:00 My Comment : [facility] Division of Radiology [address] [place] [address] Tel. no. Patient Name: BRANDEN ORNELAS Pt. Address: [address] [place] [address]. Rec #: [id number] [place] [address]: Tang HURST, Barb Amaro Pt CELL Order Location: [facility] : 1980 Female Age: 36 Order #: [id number] Reason for exam: pelvic pain Ultrasound OB , LIMITED Exam Date: 12/23/16 This imaging exam was performed at [facility] EXAM: US Uterus, Limited CLINICAL HISTORY: 36 years old, female; Pain; Other: Pelvic; Gestational age or lmp: 09/20/16; ; Additional info: Pelvic pain TECHNIQUE: Real-time ultrasound of the maternal uterus (limited) with image documentation. COMPARISON: US - OB TRANSVAGINAL 2016-12-05 22:36 FINDINGS: A single intrauterine gestation is identified in transverse presentation with the placenta in the posterior fundus. The cervix measures 4.3 cm, and is closed. cardiac activity is identified at a rate of 165 beats per minute. BIOMETRIC GROWTH PARAMETERS: BPD ([place]) 2.4 cm corresponding to a gestational age of 14 weeks, 0 days HC ([place]) 8.7 cm corresponding to a gestational age of 13 weeks 6 days AC([place]) 6.7 cm corresponding to a gestational age of 13 weeks 3 days FL([place]) 1.4 cm corresponding to a gestational age of 14 weeks one day Estimated gestational age by ultrasound: 13 weeks 5 days for an estimated date of delivery of 06/25/2017 Estimated weight: 83.5 grams HC/AC ([place]) 1.3 (1.11-1.34) Despite prolonged interrogation, the right ovary was nonvisualized. The left ovary measures 2.2 x 2.6 x 3.3 cm in length and the left ovary is an anechoic focus measuring 2.5 cm in greatest dimension, statistically a cyst. IMPRESSION: Single intrauterine gestation with an approximate gestational age of 13 weeks and 5 days. The cervix is long and closed. cardiac activity is identified. Dictated By: Emelyn Kenny MD Dictated Date/Time: 12/23/162226 Signed By: Emelyn Kenny MD Date Signed: 2226 Transcribed By: NIRAV Transcribe Date/Time : 12/23/162226 NOLVIA/SITA Re-evaluation Time: 23:00 Condition: Improved Disposition - Clinical Impression Clinical Impression: Vomiting and diarrhea, Vomiting during Counseled Patient/Family Regarding: Studies Performed, Diagnosis, Need For Followup, Rx Given - Disposition Referrals: [facility] [Outside] - 12/24/16 Disposition: Routine/Home Disposition Time: 23:45 Condition: IMPROVED Prescriptions: Ondansetron ODT [Zofran ODT] 1 odt PO Q6 PRN #20 odt PRN Reason: Nausea/Vomiting Instructions: Hyperemesis Gravidarum (ED), Gastroenteritis (ED) Forms: [facility] ED School/Work Excuse Print Language: CROATIAN
[2016-12-23] MEDS ORDERED: Lactated Ringer's 1,000 ML IV STA (19:46)
[2016-12-23] MEDS ORDERED: Dextrose 5%/Lactated Ringer's 1,000 ML IV SCH (20:00)
[2016-12-23 20:54] LABS: BASO % 0.1 % (0.0-2.0); EOS % 0.3 % (0.0-4.0); HEMATOCRIT 31.5 % (34.0-47.0); LYMPH # 1.9 K/uL (1.0-4.3); LYMPH % 13.8 % (20.0-40.0); MEAN CELL VOLUME 77.8 fl (81.0-99.0); MEAN CORPUSCULAR HEMOGLOBIN 26.6 pg (27.0-31.0); MEAN CORPUSCULAR HGB CONC 34.2 g/dL (33.0-37.0); MEAN PLATELET VOLUME 9.3 fl (7.2-11.7); MONO # 1.1 K/uL (0.0-0.8); MONO % 7.9 % (0.0-10.0); NEUT # 10.5 K/uL (1.8-7.0); NEUT % 77.9 % (50.0-75.0); NRBC % 0.1 % (0.0-0.0); RED CELL DISTRIBUTION WIDTH 14.6 % (11.5-14.5); WHITE BLOOD COUNT 13.5 K/uL (4.8-10.8)
[2016-12-23 21:02] LABS: ALB/GLOB RATIO 1.2 (1.0-2.1); ALKALINE PHOSPHATASE 122 U/L (38-126); ALT/SGPT 34 U/L (9-52); AST/SGOT 35 U/L (14-36); BILIRUBIN,TOTAL 0.8 mg/dl (0.2-1.3); BLOOD UREA NITROGEN 12 mg/dl (7-17); CALCIUM 8.7 mg/dL (8.4-10.2); CARBON DIOXIDE 20 mmol/L (22-30); CHLORIDE 104 mmol/L (98-107); GFR AFRICAN-AMERICAN > 60; GLUCOSE,RANDOM 81 mg/dL (65-105); LIPASE 15 U/L (23-300); MAGNESIUM 1.9 MG/DL (1.6-2.3); PHOSPHOROUS 3.7 mg/dl (2.5-4.5); POTASSIUM 4.6 MMOL/L (3.6-5.0); SODIUM 132 mmol/l (132-148); TOTAL PROTEIN 6.2 G/DL (6.3-8.2)
[2016-12-23 21:08] LABS: RBC URINE 3 /hpf (0-3); URINE BACTERIA RARE (<OCC); URINE BILIRUBIN NEGATIVE (NEGATIVE); URINE BLOOD NEGATIVE (NEGATIVE); URINE COLOR YELLOW (YELLOW); URINE GLUCOSE (UA) NEG (Normal); URINE KETONE TRACE mg/dL (NEGATIVE); URINE LEUKOCYTE ESTERASE NEG Leu/uL (Negative); URINE PROTEIN NEGATIVE (NEGATIVE); WBC URINE 3 /hpf (0-5)
--- NOTE | 2016-12-23 22:17 | US ---
EXAM: US Abdomen Limited, Right Upper Quadrant CLINICAL HISTORY: 36 years old, female; Pain; Abdominal pain; Epigastric; ; Additional info: Epigastric pain TECHNIQUE: Real-time ultrasound of the right upper quadrant with image documentation. COMPARISON: No relevant prior studies available. FINDINGS: Liver: Unremarkable in echogenicity and size measuring 13 cm in longitudinal dimension. No intrahepatic bile duct dilation. Gallbladder: No acute findings. No gallstones. Common bile duct: No stones. No dilation, measuring 3 mm. Pancreas: Visualization of the pancreas is limited by overlying bowel gas. Right kidney: No acute findings. No obstructing stones. No solid mass. No hydronephrosis. IMPRESSION: Unremarkable sonographic evaluation of the right upper quadrant, as detailed above. Limited evaluation of the pancreas, secondary to overlying bowel gas.
--- NOTE | 2016-12-23 22:27 | US ---
EXAM: US Uterus, Limited CLINICAL HISTORY: 36 years old, female; Pain; Other: Pelvic; Gestational age or lmp: 09/20/16; ; Additional info: Pelvic pain TECHNIQUE: Real-time ultrasound of the maternal uterus (limited) with image documentation. COMPARISON: US - OB TRANSVAGINAL 2016-12-05 22:36 FINDINGS: A single intrauterine gestation is identified in transverse presentation with the placenta in the posterior fundus. The cervix measures 4.3 cm, and is closed. cardiac activity is identified at a rate of 165 beats per minute. BIOMETRIC GROWTH PARAMETERS: BPD ([place]) 2.4 cm corresponding to a gestational age of 14 weeks, 0 days HC ([place]) 8.7 cm corresponding to a gestational age of 13 weeks 6 days AC([place]) 6.7 cm corresponding to a gestational age of 13 weeks 3 days FL([place]) 1.4 cm corresponding to a gestational age of 14 weeks one day Estimated gestational age by ultrasound: 13 weeks 5 days for an estimated date of delivery of 06/25/2017 Estimated weight: 83.5 grams HC/AC ([place]) 1.3 (1.11-1.34) Despite prolonged interrogation, the right ovary was nonvisualized. The left ovary measures 2.2 x 2.6 x 3.3 cm in length and the left ovary is an anechoic focus measuring 2.5 cm in greatest dimension, statistically a cyst. IMPRESSION: Single intrauterine gestation with an approximate gestational age of 13 weeks and 5 days. The cervix is long and closed. cardiac activity is identified.
== END 2016-12-24 00:10 | disposition home or self-care (01) ==
LOC: H.ER 18:25
DX: O26.91 Pregnancy related conditions, unspecified, first trimester (principal); R10.2 Pelvic and perineal pain; O21.0 Mild hyperemesis gravidarum; R19.7 Diarrhea, unspecified; Z3A.13 13 weeks gestation of pregnancy
CPT/HCPCS: 76705; 76815; 80053; 81003; 83690; 83735; 84100; 85025; 96361; 96374; 96375; 99284; J2765; J7120